=== PATIENT | female | born 1980 | race Caucasian/White ===

== ENCOUNTER 2021-12-24 19:06 | Emergency (ER) | payer SELFPAY ==
[2021-12-24 19:44] VITALS: BP 138/93; PULSE 96; RESP 18; TEMP 36.7; O2SAT 97; BMI 27.8
--- NOTE | 2021-12-24 20:43 | W.ED.PSYCHS ---
HPI - Psych General: Chief Complaint: Psychiatric Symptoms Stated Complaint: BEHAVIORAL ISSUES Time Seen by Provider: 12/24/21 19:10 Source: patient Mode of arrival: EMS Limitations: no limitations History of Present Illness: This patient was transported to our emergency department by EMS. She apparently has a history of recreational drug use and then also has apparent history of a drug-related crime that she wears an ankle bracelet for. She states that she has been living with her parents but that is becoming an untenable situation for her as both her parents are alcoholics and her mother is a drug addict. She states that she feels like she wants to get sober but then relates that she smoke marijuana daily and then Meeting earlier today and cut her ankle bracelet soft. She states that she has been feeling sad and depressed but has no specific plan on self-harm that she will relate to me. She states she was given the option of coming here or going to prison and she decided to come here because she wants to get sober. She does use alcohol in addition to marijuana and occasional other recreational drugs and states her last alcoholic drink was over a week ago. She denies any past hospitalization for mental illness. MD complaint: feels depressed Context: recent drug abuse and not taking psychiatric medications Associated symptoms: Reports depression and suicidal ideation; Deny auditory hallucinations, visual hallucinations or homicidal ideation If self harm: admits thoughts of self harm Review of Systems Const: Denies: fever(s), chills or body aches Eyes: Denies: change in vision or blurry vision ENMT: Denies: throat pain or odynophagia Card: Denies: chest pain, irregular heart rhythm, lightheadedness, syncope or pre-syncope Resp: Denies: dyspnea, productive cough or non-productive cough GI: Denies: abdominal pain, nausea or vomiting : Denies: flank pain, difficulty voiding, dysuria or urinary frequency Musc: Denies: neck pain, back pain, extremity pain, extremity swelling or joint pain Skin/Breast: Denies: rash or pruritus Neuro: Denies: headache(s), numbness in extremities, weakness in extremities, confusion, Slurred speech present or seizure-like activity Psych: Reports: depression, mood swings and suicidal ideation; Denies: paranoia, visual hallucinations, auditory hallucinations, tactile hallucinations or homicidal ideation Endo: Denies: polyuria or polydipsia Physical Exam Narrative: EXAM NARRATIVE: Peers to be calm. She makes good eye contact. Her speech is rather pressured but somewhat random at times but generally gets to a goal. Const: COMMON NORMALS: no acute distress, average body habitus, patient oriented x3 and healthy appearing GENERAL APPEARANCE: cooperative HENMT: COMMON NORMALS: normocephalic, atraumatic and moist oral mucous membranes HEAD & SCALP: normocephalic and atraumatic FACE & SINUS: normal facial exam Eye: COMMON NORMALS: Equal, round and reactive pupils present, EOMs intact bilaterally, conjunctivae normal and no scleral icterus CONJUNCTIVA: Yes conjunctivae normal PUPIL: Yes Equal, round and reactive pupils present Neck/C-Spine: COMMON NORMALS: full ROM and supple Chest: COMMONS NORMALS: normal inspection of the chest Resp: COMMON NORMALS: normal respiratory effort, No retractions, No use of accessory muscles and clear to auscultation bilaterally EFFORT & INSPECTION: Yes able to speak in complete sentences AUSCULTATION: clear to auscultation bilaterally Cardio: COMMON NORMALS: regular rate, regular rhythm, No murmurs present (Cardio) and Peripheral pulses 2+ throughout RATE: regular rate RHYTHM: regular rhythm PERIPHERAL PULSES: Peripheral pulses 2+ throughout : COMMON NORMALS: Yes no CVA tenderness BLADDER/KIDNEY EXAM: Yes no CVA tenderness Back/Pelvis: COMMON NORMALS: no CVA tenderness, thoracic and lumbar spine normal to inspection, no thoracic nor lumbar tenderness and thoraco-lumbar ROM normal Extremity: COMMON NORMALS: normal to inspection, full ROM, capillary refill normal, no calf tenderness and no pedal edema Neuro: COMMON NORMALS: patient oriented x3, moves all extremities, no focal motor deficits and no sensory deficits noted SPEECH: speech normal Psych: COMMON NORMALS: speech normal ATTITUDE: Yes calm and Yes engaged ACTIVITY/MOTOR BEHAVIOR: Yes appropriate eye contact SPEECH: Yes normal speech THOUGHT PROCESS: Circumstantial thought process present THOUGHT CONTENT: Yes Suicidality present MEMORY/COGNITION: Yes memory grossly intact JUDGEMENT: Fair judgement present (Psych) Skin: COMMON NORMALS: no rashes or lesions noted and no wounds GENERAL SKIN EXAM: no rashes or lesions noted Course Reevaluation(s): Reevaluation #1: Patient remains very calm and interactive and without any obvious abnormal thought pattern. She really has no thoughts of self-harm per se other than she says it she cannot go back and stay with her parents. She readily admits the only reason she is here in the emergency department is she is trying to appease her vice squad police officer and/or residential life director for her drug offense. This occurred because she admitted to them that she had used today. Again her risk of suicidality is extremely low at this time and I think that she is appropriate to be discharged with with a reliable friend and to sort out her issues with her vice squad police officer and/or drug court tomorrow. She did test positive for methamphetamines which she said she used 2 days ago but not for THC. Apparently she had used a some sort of a CBD inhaled device which does not include hallucinogenic THC to my knowledge. Time: 22:44 Vital Signs: Vital signs: Vital Signs Temperature 98.1 F 12/24/21 21:51 Pulse Rate 85 12/24/21 21:51 Respiratory Rate 13 12/24/21 21:51 Blood Pressure 123/82 12/24/21 21:51 Pulse Oximetry 99 12/24/21 21:51 [facility] - Psych Medical Decision Making This pleasant lady was transported to the emergency room via EMS from her drug residential life director apparently at the their insistence that she be evaluated because she admitted that she had used to them and needed to be sober. Evaluation here reveals her to be clinically sober any evidence of altered mental status. She had clear thought with normal thought patterns, no evidence of hallucinations, loosening of associations, suicidality homicidality etc. She was positive for methamphetamine which she admitted that she had used. She is currently clinically stable and her risk of suicidality is deemed to be quite low based upon this emergency department evaluation. She voiced and acknowledged understanding of the plan of care and recommendations. Lab Data : 12/24/21 21:00 12/24/21 21:00 Laboratory Results WBC 7.9 10^3/uL (4.0-10.0) 12/24/21 21:00 RBC 4.57 10^6/uL (4.1-5.3) 12/24/21 21:00 Hgb 13.2 g/dL (11.5-15.3) 12/24/21 21:00 Hct 40.4 % (37.0-47.0) 12/24/21 21:00 MCV 88.4 fl (81-99) 12/24/21 21:00 MCH 28.9 pg (28.0-34.0) 12/24/21 21:00 MCHC 32.7 g/dL (30.0-36.0) 12/24/21 21:00 RDW 13.5 % (12.1-15.1) 12/24/21 21:00 Plt Count 270 10^3/cmm (130-400) 12/24/21 21:00 MPV 8.4 fL (7.4-10.4) 12/24/21 21:00 Neut % (Auto) 53.0 % 12/24/21 21:00 Lymph % (Auto) 40.2 % 12/24/21 21:00 Hawkins % (Auto) 4.6 % 12/24/21 21:00 Eos % (Auto) 1.3 % 12/24/21 21:00 Baso % (Auto) 0.8 % 12/24/21 21:00 Neut # (Auto) 4.17 10^3/uL (1.8-7.7) 12/24/21 21:00 Lymph # (Auto) 3.2 10^3/uL (0.8-4.8) 12/24/21 21:00 Hawkins # (Auto) 0.4 10^3/uL (0.2-0.9) 12/24/21 21:00 Eos # (Auto) 0.1 10^3/uL (0.0-0.8) 12/24/21 21:00 Baso # (Auto) 0.1 10^3/uL (0.0-0.1) 12/24/21 21:00 Nucleated RBC % (auto) 0 % 12/24/21 21:00 Nucleated RBCs # 0.0 /100WBC 12/24/21 21:00 Sodium 135 mmol/L (136-145) L 12/24/21 21:00 Potassium 3.7 mmol/L (3.5-5.1) 12/24/21 21:00 Chloride 98 mmol/L (98-107) 12/24/21 21:00 Carbon Dioxide 26 mmol/L (22-29) 12/24/21 21:00 Anion Gap 14.7 (5-19) 12/24/21 21:00 BUN 11 mg/dL (6-20) 12/24/21 21:00 Creatinine 0.9 mg/dL (0.5-0.9) 12/24/21 21:00 GFR Calculation 69.7 mL/min (90-130) L 12/24/21 21:00 Glucose 110 mg/dL (65-115) 12/24/21 21:00 Calculated Osmolality 280 mOsm/kg (285-295) L 12/24/21 21:00 Calcium 9.8 mg/dL (8.5-10.5) 12/24/21 21:00 Total Bilirubin 0.3 mg/dL (0.15-1.2) 12/24/21 21:00 AST 15 U/L (0-32) 12/24/21 21:00 ALT 12 U/L (0-33) 12/24/21 21:00 Alkaline Phosphatase 65 IU/L (35-105) 12/24/21 21:00 Total Protein 7.8 g/dL (6.6-8.7) 12/24/21 21:00 Albumin 4.8 g/dL (3.5-5.2) 12/24/21 21:00 Globulin 3.0 g/dL (1.3-4.6) 12/24/21 21:00 TSH 39.12 uIU/mL (0.27-4.20) H 12/24/21 21:00 HCG, Qual Negative (Negative) 12/24/21 21:00 Salicylates < 0.3 mg/dL (3-10) L 12/24/21 21:00 Urine Opiates Screen Negative ng/mL (Negative) 12/24/21 21:00 Acetaminophen < 5.0 ug/mL (10-30) L 12/24/21 21:00 Ur Barbiturates Screen Negative ng/mL (Negative) 12/24/21 21:00 Ur Phencyclidine Scrn Negative ng/mL (Negative) 12/24/21 21:00 Ur Amphetamines Screen Positive ng/mL (Negative) H 12/24/21 21:00 U Benzodiazepines Scrn Negative ng/mL (Negative) 12/24/21 21:00 Urine Cocaine Screen Negative ng/mL (Negative) 12/24/21 21:00 U Marijuana (THC) Screen Negative ng/mL (Negative) 12/24/21 21:00 Discharge Plan Discharge Patient Disposition: Home Clinical Impression: History of drug use disorder Condition: Stable Prescriptions: No Action No Known Home Medications 0RF Discharge Orders: Discharge ED (Routine); Ordered 12/24/21 Ordered By: Heber Lugo Discharge Diet: Usual diet Discharge Activity: Resume usual activity Patient Instructions: Polysubstance Use Disorder (ED), Opioid Safety Activity Restrictions/Additional Instructions: Do not use street drugs. If you feel sad or concerned about possibility of harm to yourself return to this or the nearest emergency department. Coding Level of Care Code ED Informatics Developer for [employer] Fwd Exam Comprehensive
[2021-12-24 21:05] LABS: Basophils # 0.1 10^3/uL (0.0-0.1); Basophils % 0.8 %; Eosinophils # 0.1 10^3/uL (0.0-0.8); Eosinophils % 1.3 %; Hematocrit 40.4 % (37.0-47.0); Hemoglobin 13.2 g/dL (11.5-15.3); Lymphocytes # 3.2 10^3/uL (0.8-4.8); Lymphocytes % 40.2 %; Mean Corpuscular HGB Conc 32.7 g/dL (30.0-36.0); Mean Corpuscular Hemoglobin 28.9 pg (28.0-34.0); Mean Corpuscular Volume 88.4 fl (81-99); Mean Platelet Volume 8.4 fL (7.4-10.4); Monocytes # 0.4 10^3/uL (0.2-0.9); Monocytes % 4.6 %; Neutrophils # 4.17 10^3/uL (1.8-7.7); Nucleated Red Blood Cells % 0 %; Platelet Count 270 10^3/cmm (130-400); Red Blood Count 4.57 10^6/uL (4.1-5.3); Red Cell Distribution Width 13.5 % (12.1-15.1); White Blood Count 7.9 10^3/uL (4.0-10.0)
[2021-12-24 21:09] LABS: HCG Qualitative Urine. Negative (Negative)
[2021-12-24 21:21] LABS: Amphetamines Screen Urine Positive (Negative); Barbiturates Screen Urine Negative (Negative); Benzodiazepines Screen Urine Negative (Negative); Cocaine Screen Urine Negative (Negative); Opiate Screen Urine Negative (Negative); PCP Screen Urine Negative (Negative); THC Screen Urine Negative (Negative)
[2021-12-24 21:34] LABS: Alanine Aminotransferase 12 U/L (0-33); Albumin Level 4.8 g/dL (3.5-5.2); Alkaline Phosphatase 65 IU/L (35-105); Anion Gap 14.7 (5-19); Aspartate Amino Transferase 15 U/L (0-32); Blood Urea Nitrogen 11 mg/dL (6-20); Calcium 9.8 mg/dL (8.5-10.5); Carbon Dioxide 26 mmol/L (22-29); Chloride 98 mmol/L (98-107); Glomerular Filtration Rate 69.7 mL/min (90-130); Glucose 110 mg/dL (65-115); Osmolality Calculated 280 mOsm/kg (285-295); Potassium 3.7 mmol/L (3.5-5.1); Sodium 135 mmol/L (136-145); Thyroid Stimulating Hormone 39.12 uIU/mL (0.27-4.20); Total Bilirubin 0.3 mg/dL (0.15-1.2); Total Protein 7.8 g/dL (6.6-8.7)
[2021-12-24 21:50] LABS: Acetaminophen < 5.0 ug/mL (10-30); Salicylate < 0.3 mg/dL (3-10)
[2021-12-24 21:51] VITALS: BP 123/82; PULSE 85; RESP 13; TEMP 36.7; O2SAT 99
== END 2021-12-24 22:45 | disposition home or self-care (01) ==
PROVIDERS: Emergency Provider Emergency Medicine
DX: F15.10 Other stimulant abuse, uncomplicated (principal); Z65.3 Problems related to other legal circumstances
CPT/HCPCS: 80053; 80306; 80307; 81025; 84443; 85025; 99282